=== PATIENT | male | born 1985 | race Caucasian/White ===

== ENCOUNTER 2022-03-19 20:03 | Emergency (ER) | payer OTHER ==
[~2022-03-19] VITALS: Ht 177.8 cm; Wt 71.7 kg
[2022-03-19 23:03] VITALS: BP 123/83
[2022-03-20] MEDS ORDERED: IBUPROFEN 800 MG TAB PO ONE (00:15)
== END 2022-03-20 00:33 | disposition home or self-care (01) ==
LOC: M ED 20:03
DX: N50.811 Right testicular pain (principal)

== ENCOUNTER → 2022-07-03 | Outpatient (CLI) | payer OTHER ==
[~2022-07-03] MED LIST: PROHANCE 279.3MG/ML 15ML VIAL As Ordered ONE
== END ==
LOC: M RAD 12:41
PROVIDERS: ATTEND Specialist
DX: N41.0 Acute prostatitis (principal)
CPT/HCPCS: 72197; A9576

== ENCOUNTER 2023-08-28 23:12 | Emergency (ER) | payer OTHER ==
[~2023-08-28] VITALS: Ht 177.8 cm; Wt 70.3 kg
[2023-08-28 23:12] VITALS: BP 129/70; TEMP 99.1; O2SAT 100
== END 2023-08-28 23:41 | disposition left against medical advice (07) ==
LOC: M ED 23:12
DX: Z53.21 Procedure and treatment not carried out due to patient leaving prior to being seen by health care provider (principal)